=== PATIENT | female | born 1990 | race Two or more races ===

== ENCOUNTER 2020-04-01 11:14 | Outpatient (CLI) | payer OTHER | END 2020-04-01 11:41 | disposition home or self-care (01) | LOC: RAD 11:14 → RX STUDY 12:15 | PROVIDERS: ATTEND Obstetrics & Gynecology Gynecology | DX: N60.11 Diffuse cystic mastopathy of right breast (principal); N60.12 Diffuse cystic mastopathy of left breast; N80.1 Endometriosis of ovary; N94.5 Secondary dysmenorrhea; N84.0 Polyp of corpus uteri; N83.209 Unspecified ovarian cyst, unspecified side; N83.292 Other ovarian cyst, left side; N83.291 Other ovarian cyst, right side; N97.8 Female infertility of other origin; D25.0 Submucous leiomyoma of uterus ==